=== PATIENT | female | born 1990 | race American Indian/Alaskan Native ===

== ENCOUNTER 2019-12-30 12:37 | Emergency (ER) | payer SELFPAY ==
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
[2019-12-30 12:49] VITALS: BP 139/98
== END 2019-12-30 12:57 | disposition home or self-care (01) ==
LOC: ED 12:37
DX: S16.1XXA Strain of muscle, fascia and tendon at neck level, initial encounter (principal); S39.012A Strain of muscle, fascia and tendon of lower back, initial encounter; V49.49XA Driver injured in collision with other motor vehicles in traffic accident, initial encounter; Y93.89 Activity, other specified; Y92.89 Other specified places as the place of occurrence of the external cause; Y99.8 Other external cause status
CPT/HCPCS: 99282